=== PATIENT | male | born 1950 | race Asian ===

== ENCOUNTER 2017-12-05 16:48 | Inpatient (IN) | payer OTHER ==
[~2017-12-05] VITALS: Ht 157.5 cm; Wt 58.1 kg
[2017-12-05 18:46] LABS: BASOPHIL % 0.2 % (0-2); PLATELET COUNT 247 x10^3mcL (130-400); RED CELL DISTRIBUTION WIDTH 13.1 % (11.5-14.5)
[2017-12-05 19:45] LABS: CALCIUM 8.5 mg/dL (8.5-10.1); CARBON DIOXIDE 21.4 mmol/L (21-32); CHLORIDE SERUM 104 mmol/L (98-107); CREATININE SERUM 1.2 mg/dL (0.7-1.3); GFR1 > 60 mL/min; GLUCOSE SERUM 142 mg/dL (74-106); SODIUM SERUM 141 mmol/L (136-145)
[2017-12-05 19:49] LABS: ALBUMIN 3.4 g/dL (3.4-5.0); ALKALINE PHOSPHATASE 78 U/L (46-116); ALT/SGPT 57 U/L (16-63); AST/SGOT 27 U/L (15-37); TOTAL PROTEIN, SERUM 7.1 g/dL (6.4-8.2)
[2017-12-05 22:10] LABS: UA SPECIFIC GRAVITY 1.015 (1.005-1.035); microscopic required? YES; urine erythrocyte NEGATIVE (NEGATIVE)
[2017-12-05 22:19] LABS: AMPHETAMINE QUAL UR POSITIVE (NEG <=1000)
[2017-12-06] VITALS (11 sets, daily range): BP systolic 104–160; BP diastolic 54–83
[2017-12-06 03:40] LABS: BASOPHIL % 0.2 % (0-2); PLATELET COUNT 241 x10^3mcL (130-400); RED CELL DISTRIBUTION WIDTH 12.9 % (11.5-14.5)
[2017-12-06 04:27] LABS: T3 TOTAL 0.76 ng/mL
[2017-12-06 05:53] LABS: CHLORIDE SERUM 107 mmol/L (98-107); POTASSIUM SERUM 4.6 mmol/L (3.5-5.1); SODIUM SERUM 140 mmol/L (136-145)
[2017-12-06 05:54] LABS: CALCIUM 7.7 mg/dL (8.5-10.1); CARBON DIOXIDE 20.5 mmol/L (21-32); CREATININE SERUM 1.2 mg/dL (0.7-1.3); GFR1 > 60 mL/min; GLUCOSE SERUM 125 mg/dL (74-106); MAGNESIUM 1.4 mg/dL (1.8-2.4); PHOSPHOROUS 2.8 mg/dL (2.5-4.9)
[2017-12-06 09:28] LABS: FREE T4 1.01 ng/dL (0.76-1.46); FREE THYROXINE INDEX 1.8 ug/dL (1.4-4.5); T4(THYROXINE) 4.4 ug/dL (4.7-13.3)
[2017-12-06 09:48] LABS: CHOLESTEROL/HDL RATIO 3.2; PHOSPHOROUS 3.3 mg/dL (2.5-4.9)
[2017-12-06 09:53] LABS: MAGNESIUM 1.7 mg/dL (1.8-2.4)
[2017-12-07 05:38] VITALS: BP 117/62
[2017-12-07 06:49] LABS: CALCIUM 8.1 mg/dL (8.5-10.1); CARBON DIOXIDE 25.6 mmol/L (21-32); CREATININE SERUM 1.5 mg/dL (0.7-1.3); MAGNESIUM 2.7 mg/dL (1.8-2.4); PHOSPHOROUS 2.3 mg/dL (2.5-4.9); POTASSIUM SERUM 3.6 mmol/L (3.5-5.1)
[2017-12-07 06:50] LABS: BASOPHIL % 0.2 % (0-2); PLATELET COUNT 175 x10^3mcL (130-400); RED CELL DISTRIBUTION WIDTH 13.6 % (11.5-14.5)
[2017-12-07 09:57] VITALS: BP 130/75
[2017-12-07 14:08] VITALS: BP 150/65
[2017-12-07 17:39] VITALS: BP 140/71
[2017-12-07 21:23] VITALS: BP 138/74
[2017-12-08] VITALS (8 sets, daily range): BP systolic 140–1326; BP diastolic 54–106
[2017-12-08 06:53] LABS: BASOPHIL % 0.1 % (0-2); PLATELET COUNT 209 x10^3mcL (130-400); RED CELL DISTRIBUTION WIDTH 13.4 % (11.5-14.5)
[2017-12-08 07:04] LABS: CALCIUM 8.1 mg/dL (8.5-10.1); CARBON DIOXIDE 31.1 mmol/L (21-32); CHLORIDE SERUM 101 mmol/L (98-107); CREATININE SERUM 1.2 mg/dL (0.7-1.3); GFR1 > 60 mL/min; GLUCOSE SERUM 123 mg/dL (74-106); MAGNESIUM 2.4 mg/dL (1.8-2.4); PHOSPHOROUS 2.4 mg/dL (2.5-4.9); POTASSIUM SERUM 3.2 mmol/L (3.5-5.1); SODIUM SERUM 140 mmol/L (136-145)
[2017-12-09] VITALS (8 sets, daily range): BP systolic 122–179; BP diastolic 65–97
[2017-12-09 07:50] LABS: PLATELET COUNT 287 x10^3mcL (130-400); RED CELL DISTRIBUTION WIDTH 13.5 % (11.5-14.5)
[2017-12-09 07:55] LABS: CALCIUM 8.8 mg/dL (8.5-10.1); CHLORIDE SERUM 100 mmol/L (98-107); CREATININE SERUM 1.1 mg/dL (0.7-1.3); GFR1 > 60 mL/min; GLUCOSE SERUM 151 mg/dL (74-106); SODIUM SERUM 141 mmol/L (136-145)
[2017-12-09 07:58] LABS: POTASSIUM SERUM 2.7 mmol/L (3.5-5.1)
[2017-12-09 09:36] LABS: BAND NEUTROPHIL 0 % (0-10); BASOPHIL 0 % (0-2); MONOCYTE 1 % (0-7); SEGMENTED NEUTROPHILS 95 % (37-75)
[2017-12-09 09:37] LABS: PLATELET MORPHOLOGY PLATELETS NORMAL; rbc morphology (normal/abnorm) ABNORMAL (NORMAL)
[2017-12-09 14:36] LABS: CALCIUM 8.4 mg/dL (8.5-10.1); CARBON DIOXIDE 32.1 mmol/L (21-32); CHLORIDE SERUM 102 mmol/L (98-107); CREATININE SERUM 1.2 mg/dL (0.7-1.3); GFR1 > 60 mL/min; GLUCOSE SERUM 154 mg/dL (74-106); POTASSIUM SERUM 3.7 mmol/L (3.5-5.1); SODIUM SERUM 140 mmol/L (136-145)
[2017-12-10] VITALS (8 sets, daily range): BP systolic 135–187; BP diastolic 85–93
[2017-12-10 06:37] LABS: BASOPHIL % 0.1 % (0-2); PLATELET COUNT 302 x10^3mcL (130-400); RED CELL DISTRIBUTION WIDTH 13.6 % (11.5-14.5)
[2017-12-10 07:10] LABS: CALCIUM 8.4 mg/dL (8.5-10.1); CARBON DIOXIDE 26.8 mmol/L (21-32); CHLORIDE SERUM 104 mmol/L (98-107); CREATININE SERUM 1.1 mg/dL (0.7-1.3); GFR1 > 60 mL/min; GLUCOSE SERUM 133 mg/dL (74-106); MAGNESIUM 2.5 mg/dL (1.8-2.4); PHOSPHOROUS 2.5 mg/dL (2.5-4.9); POTASSIUM SERUM 3.4 mmol/L (3.5-5.1); SODIUM SERUM 142 mmol/L (136-145)
[2017-12-11 05:38] VITALS: BP 159/84
[2017-12-11 06:23] LABS: BASOPHIL % 0.1 % (0-2); PLATELET COUNT 379 x10^3mcL (130-400); RED CELL DISTRIBUTION WIDTH 13.9 % (11.5-14.5)
[2017-12-11 06:55] LABS: CALCIUM 8.4 mg/dL (8.5-10.1); CARBON DIOXIDE 23.8 mmol/L (21-32); CHLORIDE SERUM 102 mmol/L (98-107); GFR1 > 60 mL/min; GLUCOSE SERUM 109 mg/dL (74-106); MAGNESIUM 1.9 mg/dL (1.8-2.4); PHOSPHOROUS 3.5 mg/dL (2.5-4.9); POTASSIUM SERUM 3.7 mmol/L (3.5-5.1); SODIUM SERUM 139 mmol/L (136-145)
[2017-12-11 09:01] VITALS: BP 175/55
[2017-12-11 12:03] VITALS: BP 148/90
[2017-12-11 13:48] VITALS: BP 169/92
[2017-12-11 18:29] VITALS: BP 110/80
[2017-12-11 20:54] VITALS: BP 105/78
[2017-12-12 05:22] VITALS: BP 187/79
[2017-12-12 05:49] VITALS: BP 141/85
[2017-12-12 07:03] LABS: BASOPHIL % 0.1 % (0-2); RED CELL DISTRIBUTION WIDTH 13.7 % (11.5-14.5)
[2017-12-12 07:22] LABS: CALCIUM 8.7 mg/dL (8.5-10.1); CHLORIDE SERUM 102 mmol/L (98-107); CREATININE SERUM 0.9 mg/dL (0.7-1.3); GFR1 > 60 mL/min; GLUCOSE SERUM 117 mg/dL (74-106); SODIUM SERUM 137 mmol/L (136-145)
[2017-12-12 07:28] LABS: PLATELET COUNT 414 x10^3mcL (130-400)
[2017-12-12 09:47] VITALS: BP 153/78
[2017-12-12 12:21] VITALS: BP 142/76
[2017-12-12 17:09] VITALS: BP 147/72
[2017-12-12 20:42] VITALS: BP 137/70
[2017-12-13 05:28] VITALS: BP 127/75
[2017-12-13 06:51] LABS: BASOPHIL % 0.1 % (0-2); RED CELL DISTRIBUTION WIDTH 13.8 % (11.5-14.5)
[2017-12-13 07:00] LABS: PLATELET COUNT 490 x10^3mcL (130-400)
[2017-12-13 07:10] LABS: CALCIUM 8.4 mg/dL (8.5-10.1); CARBON DIOXIDE 25.1 mmol/L (21-32); CHLORIDE SERUM 100 mmol/L (98-107); CREATININE SERUM 1.1 mg/dL (0.7-1.3); GFR1 > 60 mL/min; GLUCOSE SERUM 112 mg/dL (74-106); MAGNESIUM 1.8 mg/dL (1.8-2.4); PHOSPHOROUS 3.7 mg/dL (2.5-4.9); POTASSIUM SERUM 4.4 mmol/L (3.5-5.1); SODIUM SERUM 134 mmol/L (136-145)
[2017-12-13 09:46] VITALS: BP 126/79
[2017-12-13 12:20] VITALS: BP 125/77
[2017-12-13 12:46] VITALS: BP 125/73
[2017-12-13 17:06] VITALS: BP 148/89
[2017-12-13 20:41] VITALS: BP 138/74
[2017-12-14 06:02] VITALS: BP 123/59
[2017-12-14 07:10] LABS: BASOPHIL % 0.3 % (0-2); RED CELL DISTRIBUTION WIDTH 13.2 % (11.5-14.5)
[2017-12-14 07:50] LABS: MAGNESIUM 1.8 mg/dL (1.8-2.4); PHOSPHOROUS 3.8 mg/dL (2.5-4.9)
[2017-12-14 08:07] LABS: ALKALINE PHOSPHATASE 209 U/L (46-116); ALT/SGPT 59 U/L (16-63); AST/SGOT 30 U/L (15-37); BILIRUBIN TOTAL 0.55 mg/dL (0.20-1.00); CALCIUM 8.7 mg/dL (8.5-10.1); CARBON DIOXIDE 22.7 mmol/L (21-32); CHLORIDE SERUM 99 mmol/L (98-107); CREATININE SERUM 1.1 mg/dL (0.7-1.3); GFR1 > 60 mL/min; GLUCOSE SERUM 103 mg/dL (74-106); POTASSIUM SERUM 4.2 mmol/L (3.5-5.1); SODIUM SERUM 134 mmol/L (136-145)
[2017-12-14 08:23] LABS: ALBUMIN 2.4 g/dL (3.4-5.0); PLATELET COUNT 600 x10^3mcL (130-400)
[2017-12-14 09:42] VITALS: BP 144/69
[2017-12-14 15:10] LABS: BASOPHIL % 0.1 % (0-2)
[2017-12-14 15:13] LABS: PLATELET COUNT 653 x10^3mcL (130-400)
[2017-12-14] MEDS ORDERED: COR3 PO (15:33)
[2017-12-14] MEDS ORDERED: METOPROLOL TART25 M1 PO (15:34)
[2017-12-14] MEDS ORDERED: CAR60 PO (15:35)
[2017-12-14] MEDS ORDERED: ECO81 PO (15:35)
[2017-12-14] MEDS ORDERED: KCL20L PO (15:36)
[2017-12-14] MEDS ORDERED: LAC PO (15:37)
[2017-12-14] MEDS ORDERED: SYN25 PO (15:37)
[2017-12-14] MEDS ORDERED: LIPITOR40 MG PO (15:38)
[2017-12-14] MEDS ORDERED: DOXYCYCLINE HY100 MG PO (15:39)
[2017-12-14 16:33] VITALS: BP 144/69
== END 2017-12-14 17:15 | disposition home or self-care (01) | DRG 338 ==
LOC: ED 16:48 → MU 21:31 → DU 21:31 → MU 12-13 16:03
PROVIDERS: Emergency Medicine; Family Medicine; Family Medicine Sports Medicine; Student in an Organized Health Care Education/Training Program; Surgery
PROC: 0DJD4ZZ Inspection of Lower Intestinal Tract, Percutaneous Endoscopic Approach (ICD-10-PCS; 2017-12-05)
PROC: 0DTJ0ZZ Resection of Appendix, Open Approach (ICD-10-PCS; principal; 2017-12-05 10:30)
DX: K35.2 Acute appendicitis with generalized peritonitis (principal); N17.0 Acute kidney failure with tubular necrosis; E44.1 Mild protein-calorie malnutrition; I16.1 Hypertensive emergency; I77.4 Celiac artery compression syndrome; K55.1 Chronic vascular disorders of intestine; I48.91 Unspecified atrial fibrillation; I72.8 Aneurysm of other specified arteries; K59.00 Constipation, unspecified; E87.6 Hypokalemia; E83.41 Hypermagnesemia; E83.39 Other disorders of phosphorus metabolism; E03.9 Hypothyroidism, unspecified; E78.5 Hyperlipidemia, unspecified; F19.10 Other psychoactive substance abuse, uncomplicated; Z68.25 Body mass index [BMI] 25.0-25.9, adult
CPT/HCPCS: 83880; 84439; 90658; 94150; J0330; J0360; J0696; J1885; J2250; J2270; J2405; J2543; J2704; J2710; J3010; J3475; J3480; J3490; J7030; J7040; J7050; J7120; J8597; Q0092; Q9967

== ENCOUNTER 2018-12-23 16:40 | Inpatient (IN) | payer OTHER ==
[~2018-12-23] VITALS: Ht 170.2 cm; Wt 48.5 kg
[~2018-12-23 16:40] MED LIST: CAR60 PO; COR3 PO; DOXYCYCLINE HY100 MG PO; ECO81 PO; KCL20L PO; LAC PO; LIPITOR40 MG PO; METOPROLOL TART25 M1 PO; SYN25 PO
[2018-12-23 17:49] VITALS: Ht 170.2 cm; Wt 48.5 kg
[2018-12-23 18:36] LABS: BASOPHIL % 0.5 % (0-2); RED CELL DISTRIBUTION WIDTH 14.1 % (11.5-14.5)
[2018-12-23 18:39] LABS: CALCIUM 8.4 mg/dL (8.5-10.1); CARBON DIOXIDE 28.5 mmol/L (21-32); CREATININE SERUM 1.4 mg/dL (0.7-1.3); POTASSIUM SERUM 4.1 mmol/L (3.5-5.1)
[2018-12-23 18:43] LABS: BILIRUBIN TOTAL 0.32 mg/dL (0.20-1.00); TOTAL PROTEIN, SERUM 7.8 g/dL (6.4-8.2)
[2018-12-23 18:59] LABS: ALBUMIN 2.1 g/dL (3.4-5.0)
[2018-12-23 19:08] LABS: PLATELET COUNT 672 x10^3mcL (130-400)
[2018-12-23 21:26] LABS: MAGNESIUM 1.8 mg/dL (1.8-2.4); PHOSPHOROUS 3.2 mg/dL (2.5-4.9)
[2018-12-23 21:41] LABS: CHOLESTEROL/HDL RATIO 6.6
[2018-12-23 22:31] LABS: UA SPECIFIC GRAVITY 1.025 (1.005-1.035); microscopic required? YES; urine erythrocyte NEGATIVE (NEGATIVE)
[2018-12-23 23:21] VITALS: BP 144/78
[2018-12-24 05:50] VITALS: BP 104/52
[2018-12-24 06:16] LABS: RED CELL DISTRIBUTION WIDTH 14.4 % (11.5-14.5)
[2018-12-24 06:22] LABS: CALCIUM 7.5 mg/dL (8.5-10.1); CARBON DIOXIDE 21.9 mmol/L (21-32); CREATININE SERUM 1.5 mg/dL (0.7-1.3); MAGNESIUM 1.4 mg/dL (1.8-2.4); PHOSPHOROUS 2.1 mg/dL (2.5-4.9); POTASSIUM SERUM 4.1 mmol/L (3.5-5.1)
[2018-12-24 08:09] LABS: PLATELET COUNT 532 x10^3mcL (130-400)
[2018-12-24 09:25] VITALS: BP 128/42
[2018-12-24 11:05] LABS: BILIRUBIN DIRECT 0.18 mg/dL (0.0-0.2); BILIRUBIN TOTAL 0.4 mg/dL (0.20-1.00)
[2018-12-24 11:09] LABS: ALBUMIN 1.7 g/dL (3.4-5.0); TOTAL PROTEIN, SERUM 6.1 g/dL (6.4-8.2)
[2018-12-24 12:36] VITALS: BP 144/58
[2018-12-24 12:39] LABS: MONOCYTE 3 % (0-7); SEGMENTED NEUTROPHILS 86 % (37-75)
[2018-12-24 12:40] LABS: BAND NEUTROPHIL 6 % (0-10); BASOPHIL 0 % (0-2); METAMYELOCTE 1 % (0-2)
[2018-12-24 12:41] LABS: PLATELET MORPHOLOGY PLATELETS INCREASED; rbc morphology (normal/abnorm) NORMAL (NORMAL)
[2018-12-24 15:43] LABS: IRON < 5.0 ug/dL (65-170); TOTAL IRON BINDING CAPACITY 216 ug/dL (250-450)
[2018-12-24 16:31] VITALS: BP 125/53
[2018-12-24 21:14] VITALS: BP 117/51
[2018-12-25 05:41] VITALS: BP 143/60
[2018-12-25 06:39] LABS: BASOPHIL % 0.3 % (0-2); RED CELL DISTRIBUTION WIDTH 14.3 % (11.5-14.5)
[2018-12-25 06:45] LABS: PLATELET COUNT 598 x10^3mcL (130-400)
[2018-12-25 06:48] LABS: BILIRUBIN TOTAL 0.3 mg/dL (0.20-1.00); CARBON DIOXIDE 21.7 mmol/L (21-32); CREATININE SERUM 1.5 mg/dL (0.7-1.3); MAGNESIUM 2.8 mg/dL (1.8-2.4); PHOSPHOROUS 2.7 mg/dL (2.5-4.9); POTASSIUM SERUM 4.5 mmol/L (3.5-5.1); TOTAL PROTEIN, SERUM 6.3 g/dL (6.4-8.2)
[2018-12-25 06:54] LABS: ALBUMIN 1.6 g/dL (3.4-5.0)
[2018-12-25 09:29] VITALS: BP 147/47
[2018-12-25 13:30] VITALS: BP 149/85
[2018-12-25 15:41] LABS: AMPHETAMINE QUAL UR POSITIVE (See below)
[2018-12-25 17:02] VITALS: BP 145/70
[2018-12-25 20:51] VITALS: BP 126/71
[2018-12-26 05:24] VITALS: BP 155/53
[2018-12-26 06:43] LABS: CALCIUM 8.2 mg/dL (8.5-10.1); CARBON DIOXIDE 22.2 mmol/L (21-32); CREATININE SERUM 1.3 mg/dL (0.7-1.3); MAGNESIUM 2.2 mg/dL (1.8-2.4); PHOSPHOROUS 2.2 mg/dL (2.5-4.9); POTASSIUM SERUM 4.7 mmol/L (3.5-5.1)
[2018-12-26 07:12] LABS: BASOPHIL % 0.4 % (0-2); RED CELL DISTRIBUTION WIDTH 13.8 % (11.5-14.5)
[2018-12-26 07:42] LABS: PLATELET COUNT 716 x10^3mcL (130-400)
[2018-12-26 08:58] VITALS: BP 133/50
[2018-12-26 13:20] VITALS: BP 144/54
[2018-12-26] MEDS ORDERED: PROTONIX40 MG PO (16:01)
[2018-12-26 16:51] VITALS: BP 152/53
[2018-12-26 17:42] VITALS: BP 152/57
== END 2018-12-26 18:40 | disposition home or self-care (01) | DRG 444 ==
LOC: ED 16:40 → DU 20:47
PROVIDERS: Emergency Medicine; General Practice; Internal Medicine Gastroenterology; ADMIT Internal Medicine
PROC: 0DB68ZX Excision of Stomach, Via Natural or Artificial Opening Endoscopic, Diagnostic (ICD-10-PCS; principal; 2018-12-26 08:00)
PROC: 0DBB8ZX Excision of Ileum, Via Natural or Artificial Opening Endoscopic, Diagnostic (ICD-10-PCS; 2018-12-26 08:00)
PROC: 0DBE8ZX Excision of Large Intestine, Via Natural or Artificial Opening Endoscopic, Diagnostic (ICD-10-PCS; 2018-12-26 08:00)
PROC: 0D5N8ZZ Destruction of Sigmoid Colon, Via Natural or Artificial Opening Endoscopic (ICD-10-PCS; 2018-12-26 08:00)
DX: K80.70 Calculus of gallbladder and bile duct without cholecystitis without obstruction (principal); N17.0 Acute kidney failure with tubular necrosis; E43 Unspecified severe protein-calorie malnutrition; Z68.1 Body mass index [BMI] 19.9 or less, adult; K25.9 Gastric ulcer, unspecified as acute or chronic, without hemorrhage or perforation; K52.9 Noninfective gastroenteritis and colitis, unspecified; E83.39 Other disorders of phosphorus metabolism; E83.51 Hypocalcemia; I10 Essential (primary) hypertension
CPT/HCPCS: 43235; 45378; 78226; A9537; J1200; J1610; J1885; J2250; J2310; J2543; J3010; J3475; J3490; J7030